=== PATIENT | female | born 1960 | race Caucasian/White ===

== ENCOUNTER → 2016-08-06 | Outpatient (CLI) | payer BC ==
[2016-08-06 09:13] LABS: CHLORIDE,CL 108 mmol/L (98-110); SODIUM,NA 142 mmol/L (136-146)
== END ==
LOC: MW.CHOBGYN 08:19 → MERGE 08:19
PROVIDERS: ATTEND Nurse Practitioner Women's Health
DX: I10 Essential (primary) hypertension (principal); E78.5 Hyperlipidemia, unspecified; R07.89 Other chest pain
CPT/HCPCS: 36415; 80048; 80061; 85025; 93005

== ENCOUNTER → 2016-08-30 | Outpatient (CLI) | payer BC ==
--- NOTE | 2016-08-30 11:33 | PCM.PRNOTE ---
- Free Text/Narrative Note: Exercise MIBI Indication chest pain Sestamibi Tc99 25 MCi was given at the peak HR Patient was brought to the stress test lab in postabsorptive state verbal and paper consent was obtained from patient Vital signs at resting state blood pressure of 124/76 with a heart rate of 84 EKG shows sinus rhythm no ST changes no Q waves Maximal heart rate of 148 and target heart rate is 139 Patient reached the target heart rate, completed stage IV Edvin protocol Peak blood pressure is 156/86 Total exercise time of 10.49 minutes Upslope [address] depression in V3-V6 with a peak heart rate no arrhythmia METS 12.8 No symptom of chest pain or feeling dizzy Impression Normal hemodynamics, normal chronotropic, excellent exercise capacity, negative for ischemia on EKG Plan Nuclear portion pending
--- NOTE | 2016-08-30 15:33 | NM ---
EXAMINATION: Nuclear medicine myocardial perfusion study with exercise stress test. HISTORY: Chest pain. PROCEDURE: Patient exercised according to Edvin protocol for 10 minutes and 50 seconds and achieved maximal hea rt rate of 148 beats per minute. Adequate exercise. Following intravenous administration of 27.3 mCi of technetium 99m sestamibi, stress SPECT images i ncluding gating imaging was performed. FINDINGS: Stress myocardial SPECT images demonstrates uniform tracer uptake throughout the left ventricular my ocardium. Review of gated images demonstrates normal wall motion, contractility and wall thickening. The left ventricular ejection fraction is 71 %. The left ventricular chamber size is normal. IMPRESSION: 1. No evidence of myocardial ischemia. 2. Normal ventricular chamber size and function with ejection fraction of 71 %.
== END ==
LOC: MW.NM 09:32
PROVIDERS: ATTEND Internal Medicine
DX: R07.89 Other chest pain (principal)
CPT/HCPCS: 78451; 93017; A9500

== ENCOUNTER 2018-12-01 08:05 | Day surgery (SDC) | payer BC ==
[~2018-12-01 08:05] MED LIST: Lactated Ringers 1,000 ML IV SCH
[2018-12-01] MEDS ORDERED: Ketamine 500 mg/10 ML MDV ONE (08:52)
--- NOTE | 2018-12-01 08:57 | PCM.PREANE ---
Preanesthetic Assessment - Anesthesia/Transfusion/Family Hx Anesthesia History: Prior Anesthesia Reaction Type of Anesthesia Reaction: Excessive Somnolence Family History of Anesthesia Reaction: No Transfusion History: No Prior Transfusion(s) - Review of Systems General: No Symptoms Pulmonary: No Symptoms Cardiovascular: No Symptoms Gastrointestinal: No Symptoms Neurological: No Symptoms Other: Reports: None - Physical Assessment NPO Status Date: 11/30/18 Vital Signs: Last Vital Signs Temp 97.3 F 12/01/18 08:30 Pulse 67 12/01/18 08:30 Resp 16 12/01/18 08:30 BP 119/78 12/01/18 08:30 Pulse Ox 97 12/01/18 08:30 Height: 5 ft 5 in Weight: 82.554 kg ASA Class: 2 Mental Status: Alert & Oriented x3 Airway Class: Mallampati = 2 Dentition: Reports: Normal Dentition ROM/Head Extension: Full Lungs: Clear to Auscultation, Normal Respiratory Effort Cardiovascular: Regular Rate, Regular Rhythm - Allergies Allergies/Adverse Reactions: Allergies Allergy/AdvReac Type Severity Reaction Status Date / Time tramadol Allergy Disorientat Verified 11/28/18 09:38 ion walnuts Allergy Airway Uncoded 11/28/18 09:38 Tightness - Blood Blood Available: No - Anesthesia Plan Pre-Op Medication Ordered: None - Acknowledgements Anesthesia Type Planned: General Anesthesia Pt an Appropriate Candidate for the Planned Anesthesia: Yes Alternatives and Risks of Anesthesia Discussed w Pt/Guardian: Yes Pt/Guardian Understands and Agrees with Anesthesia Plan: Yes Additional Comments: PMH: htn, JOSE- uses CPAP, hx of hyperparathyroidism- surgical excision of benign adenoma last month- ca=1.3 Plan: tiva PreAnesthesia Questionnaire HEENT History: Reports: Other (See Below) Other HEENT History: hx of Keratoconus, wears glasses Cardiovascular History: Reports: High Cholesterol, Hypertension Respiratory History: Reports: Sleep Apnea Other Respiratory History: uses CPAP Gastrointestinal History: Reports: Hemorrhoids Genitourinary History: Reports: None [employer] WORK[employer] History: Reports: None Musculoskeletal History: Reports: Fracture Other Musculoskeletal History: hx of fx toes Neurological History: Reports: Other (See Below) Other Neuro History: hx of motion sickness Psychiatric History: Reports: None Endocrine/Metabolic History: Reports: Hyperparathyroidism, Obesity/BMI 30+ Hematologic History: Reports: None Oncologic (Cancer) History: Reports: None Dermatologic History: Reports: None - Past Surgical History Head Surgeries/Procedures: Reports: None HEENT Surgical History: Reports: Oral Surgery GI Surgical History: Reports: Colonoscopy, Other (See Below) Other GI Surgeries/Procedures: hemorrhoidectomy Female Surgical History: Reports: Breast Implant Endocrine Surgical History: Reports: Other (See Below) Other Endocrine Surgeries/Procedures: tumor removed from parathyroid gland Musculoskeletal Surgical History: Reports: Other (See Below) Other Musculoskeletal Surgeries/Procedures:: hx of lipoma excision on back - SUBSTANCE USE Smoking Status *Q: Never Smoker Recreational Drug Use History: No - HOME MEDS Home Medications: Home Meds Cholecalciferol (Vitamin D3) [Vitamin D3] 2,000 units PO DAILY 02/03/16 [History ] amLODIPine Besylate [Amlodipine Besylate] 10 mg PO BEDTIME 02/03/16 [History] Magnesium 250 mg PO DAILY 11/28/18 [History] Pravastatin [Pravachol] 40 mg PO DAILY 11/28/18 [History] - CURRENT (IN HOUSE) MEDS Current Meds: Current Medications Lactated Ringer's (Ringers, Lactated) 1,000 mls @ 125 mls/hr IV ASDIRECTED [facility] Last Admin: 12/01/18 08:29 Dose: 125 mls/hr
[2018-12-01] MEDS ORDERED: Propofol 200 MG/20 ML SDV ONE ×2 (09:27→09:47)
--- NOTE | 2018-12-01 10:13 | PCM.OPNOTE ---
- General Post-Op/Procedure Note Date of Surgery/Procedure: 12/01/18 Operative Procedure(s): Colonoscopy Pre Op Diagnosis: Change in bowel habits. Family history of colon cancer. Post-Op Diagnosis: Sigmoid diverticulosis Anesthesia Technique: MAC (ASA II) Primary Surgeon: Catracho Aquino Condition: Good Free Text/Narrative:: DICTATION [id number] CPT CODE 12431
[2018-12-01] MEDS ORDERED: Lactated Ringers 1,000 ML IV SCH (10:15)
[2018-12-01] MEDS ORDERED: Acetaminophen 1,000 MG in Premix Bag 1 BAG IV PRN (10:30)
--- NOTE | 2018-12-01 10:53 | PCM.POSTAN ---
POST ANESTHESIA ASSESSMENT - MENTAL STATUS Mental Status: Alert, Oriented - VITAL SIGNS Vital Signs: Last Vital Signs Temp 97.3 F 12/01/18 08:30 Pulse 78 12/01/18 10:44 Resp 15 12/01/18 10:44 BP 113/67 12/01/18 10:44 Pulse Ox 97 12/01/18 10:44 - RESPIRATORY Respiratory Status: Respiratory Rate WNL, Airway Patent, O2 Saturation Stable - CARDIOVASCULAR CV Status: Pulse Rate WNL, Blood Pressure Stable - GASTROINTESTINAL GI Status: No Symptoms - PAIN Pain Score: 0 - POST OP HYDRATION Hydration Status: Adequate & Stable - OBSERVATIONS Free Text/Narrative:: Pt awake and pain free with no complaints at this time
[2018-12-01 11:40] VITALS: BP 120/73
--- NOTE | 2018-12-01 11:40 | OR ---
SURGEON: Catracho Aquino M.D. DATE OF PROCEDURE: 12/01/2018 OPERATION PERFORMED: Colonoscopy. PRIMARY SURGEON: Catracho Aquino M.D. ANESTHESIA: MAC. ASA CLASSIFICATION: II. PREOPERATIVE DIAGNOSES: 1. Change in bowel habits. 2. Family history of colon cancer. POSTOPERATIVE DIAGNOSIS: Sigmoid diverticulosis. DESCRIPTION OF PROCEDURE: The patient was taken to the endoscopy room and positioned on the endoscopy table in the left lateral decubitus position. Time-out was called for appropriate identification of the patient and procedure. Monitored anesthesia care was provided. The colonoscope was inserted into the rectum and advanced with minimal difficulty to the cecum, where the colonoscope was retroflexed to visualize the ascending colon from below. The colonoscope was then straightened and slowly withdrawn. The cecum, ascending colon, hepatic flexure, transverse colon, splenic flexure, and descending colon were well visualized. No tumors, polyps, or diverticular changes were noted. There was no evidence of inflammatory bowel disease. The sigmoid colon demonstrated moderate diverticular change. No stricture, spasm, or bleeding was noted. No polyps were encountered in the sigmoid colon, and there were no inflammatory changes. The colonoscope was then withdrawn to the rectum without seeing any other pathology. Once the colonoscope was withdrawn to the distal rectum, it was retroflexed to visualize the anal orifice from above. Again, no tumors or polyps were encountered. In a retroflexed view, the patient did have some minor hemorrhoidal disease, but no acute bleeding and no acute hemorrhoids. The colonoscope was then straightened, the rectum aspirated, and the colonoscope removed. The patient tolerated the procedure well and was taken to recovery room in stable condition. MARY RICHMOND /[id number]
--- NOTE | 2018-12-01 12:57 | PCM48HPAN ---
Post Anesthesia Note - EVALUATION WITHIN 48HRS OF ANESTHETIC Vital Signs in Normal Range: Yes Patient Participated in Evaluation: Yes Respiratory Function Stable: Yes Airway Patent: Yes Cardiovascular Function Stable: Yes Hydration Status Stable: Yes Pain Control Satisfactory: Yes Nausea and Vomiting Control Satisfactory: Yes Mental Status Recovered: Yes Vital Signs: Last Vital Signs Temp 97.7 F 12/01/18 10:55 Pulse 82 12/01/18 11:15 Resp 16 12/01/18 11:15 BP 120/73 12/01/18 11:15 Pulse Ox 96 12/01/18 11:15
== END 2018-12-01 11:30 | disposition home or self-care (01) ==
LOC: MW.SDS 08:05
PROVIDERS: ATTEND Surgery
DX: R19.4 Change in bowel habit (principal); K57.30 Diverticulosis of large intestine without perforation or abscess without bleeding; K64.9 Unspecified hemorrhoids; I10 Essential (primary) hypertension; G47.33 Obstructive sleep apnea (adult) (pediatric); E78.00 Pure hypercholesterolemia, unspecified; E66.9 Obesity, unspecified; Z68.30 Body mass index [BMI] 30.0-30.9, adult; Z80.0 Family history of malignant neoplasm of digestive organs; Z88.5 Allergy status to narcotic agent; Z91.018 Allergy to other foods; Z79.899 Other long term (current) drug therapy; Z99.89 Dependence on other enabling machines and devices
CPT/HCPCS: 45378; J2704; J7120